=== PATIENT | male | born 1970 | race Caucasian/White ===

== ENCOUNTER 2020-07-28 07:12 | Inpatient (IN) | payer MEDICARE, MEDICAID ==
[~2020-07-28] VITALS: Ht 185.4 cm; Wt 124.7 kg
[~2020-07-28 07:12] MED LIST: APIX5TAB PO; ATOR-47 PO; BUME2TAB5 PO; CALC667C PO; CLOP75TA70 PO; INSU1INJ19 SC; METO10TA7 PO; METO200T42 PO; NIFE1TAB36 PO; POTA-180 PO; SEVE800T8 PO
[2020-07-28 08:13] LABS: Basophils # (auto) 0.1 10 ^3/uL (0-0.2); Basophils % (auto) 0.5 % (0.0-2.0); Eosinophils # (auto) 0 10 ^3/uL (0-0.8); Eosinophils % (auto) 0.1 % (0.0-7.0); Hematocrit 39.9 % (41.0-53.0); Hemoglobin 13.8 g/dL (13.5-17.5); Lymphocytes # (auto) 1.2 10 ^3/uL (0.4-5.4); Lymphocytes % (auto) 7.4 % (10.0-50.0); Mean Corpuscular Hemoglobin 28.1 pg (28.0-32.0); Mean Corpuscular Hgb Conc. 34.5 g/dL (32.0-36.0); Mean Corpuscular Volume 81.5 fL (80.0-100.0); Monocytes # (auto) 1.6 10 ^3/uL (0-1.3); Monocytes % (auto) 9.6 % (0.0-12.0); Neutrophils # (auto) 13.6 10 ^3/uL (1.6-8.6); Neutrophils % (auto) 82.4 % (37.0-80.0); Nucleated Red Blood Cells % 0.1 %; Platelet Count (auto) 257 10^3/uL (140-450); White Blood Cell 16.5 10^3/uL (4.4-10.8)
[2020-07-28 08:30] LABS: Albumin 3.2 g/dL (3.4-5.0); Anion Gap 19 (5-15); Calcium 6.9 mg/dL (8.5-10.1); Carbon Dioxide 20 mmol/L (21-32); Chloride 94 mmol/L (98-107); Glucose 122 mg/dL (74-106); Sodium 133 mmol/L (136-145)
[2020-07-28 08:36] LABS: Alanine Aminotransferase 18 U/L (16-61); Alkaline Phosphatase 60 U/L (45-117); Aspartate Aminotransferase 13 U/L (15-37); BUN/Creatinine Ratio 18.3; Bilirubin, Total 0.6 mg/dL (0.2-1.0); GFR African American 11 mL/min; GFR Non-African American 9 mL/min; Total Protein 8.1 g/dL (6.4-8.2)
[2020-07-28 08:41] LABS: Potassium 2.5 mmol/L (3.5-5.1)
[2020-07-28 08:42] LABS: Blood Urea Nitrogen 123 mg/dL (7-18)
[2020-07-28] MEDS ORDERED: POTASSIUM CHL 20 Meq TABLET PO ONE (10:15)
[2020-07-28] MEDS ORDERED: HYDROcodone-ACET 5/325MG TAB PO PRN (10:30)
[2020-07-28] MEDS ORDERED: ACETAMINOPHEN 500 MG TAB PO PRN (10:30)
[2020-07-28] MEDS ORDERED: NITROGLYCERIN 0.4 MG SL TAB SL PRN (10:30)
[2020-07-28] MEDS ORDERED: VANCOMYCIN PER PHARMACY 0 MG IV SCH (10:30)
[2020-07-28] MEDS ORDERED: ONDANSETRON HCL 4 MG/2 ML VIAL IV PRN (10:30)
[2020-07-28] MEDS ORDERED: DEXTROSE (50%) 50ML SYRG IV PRN (10:30)
[2020-07-28] MEDS ORDERED: MORPHINE SULF INJ 2 MG/ML SYRINGE 1ML IV PRN (10:30)
[2020-07-28] MEDS ORDERED: SEVELAMER 800 MG TAB PO SCH (11:00)
[2020-07-28] MEDS ORDERED: VANCOMYCIN 1GM/250ML 250 ML IV ONE (11:15)
[2020-07-28] MEDS: MORPHINE SULF INJ 2 MG/ML SYRINGE 1ML IV PRN ×2 (11:30→22:58)
[2020-07-28] MEDS: InsuLIN REG 1unit/0.01ml Soln (100units/ml) SC SCH ×2 (11:30→21:51)
[2020-07-28] MEDS: cefTRIAXone 1GM/50ML D5W 50 ML IV SCH (11:30)
[2020-07-28] MEDS: ACCU-CHEK COMFORT CURVE STRIP VI SCH ×2 (11:39→21:49)
[2020-07-28] MEDS ORDERED: SEVE800T8 PO (11:47)
[2020-07-28 13:15] LABS: Urine Bacteria FEW /hpf (None Seen); Urine Blood 1+ /uL (Negative); Urine Specific Gravity 1.011 (1.001-1.035); Urine WBC 12 /hpf (0 - 3)
[2020-07-28] MEDS: SEVELAMER 800 MG TAB PO SCH ×2 (14:36→18:00)
[2020-07-28] MEDS: metroNIDAZOLE 500MG/100ML 100 ML IV SCH ×2 (14:37→21:26)
[2020-07-28 17:32] VITALS: BP 116/96
[2020-07-28] MEDS ORDERED: VANCOMYCIN 500 MG in D5W 5% 100 ML IV ONE (18:00)
[2020-07-28] MEDS: ATORVASTATIN 20 MG TAB PO SCH (21:26)
[2020-07-28 21:58] VITALS: BP 148/88
[2020-07-29 05:00] VITALS: BP 128/67
[2020-07-29] MEDS: metroNIDAZOLE 500MG/100ML 100 ML IV SCH ×3 (05:42→21:15)
[2020-07-29] MEDS: ACCU-CHEK COMFORT CURVE STRIP VI SCH ×4 (06:19→21:33)
[2020-07-29] MEDS: MORPHINE SULF INJ 2 MG/ML SYRINGE 1ML IV PRN ×2 (06:19→20:03)
[2020-07-29] MEDS: InsuLIN REG 1unit/0.01ml Soln (100units/ml) SC SCH ×4 (06:20→21:34)
[2020-07-29] MEDS ORDERED: SODIUM CHL 0.9% 1000 ML BAG XX ONE (07:00)
[2020-07-29 07:28] LABS: Basophils # (auto) 0.1 10 ^3/uL (0-0.2); Basophils % (auto) 0.9 % (0.0-2.0); Eosinophils # (auto) 0 10 ^3/uL (0-0.8); Eosinophils % (auto) 0.3 % (0.0-7.0); Hematocrit 39.9 % (41.0-53.0); Hemoglobin 13.5 g/dL (13.5-17.5); Lymphocytes # (auto) 0.9 10 ^3/uL (0.4-5.4); Lymphocytes % (auto) 8.5 % (10.0-50.0); Mean Corpuscular Hemoglobin 27.5 pg (28.0-32.0); Mean Corpuscular Hgb Conc. 33.7 g/dL (32.0-36.0); Mean Corpuscular Volume 81.6 fL (80.0-100.0); Monocytes % (auto) 10.4 % (0.0-12.0); Neutrophils # (auto) 8.1 10 ^3/uL (1.6-8.6); Neutrophils % (auto) 79.9 % (37.0-80.0); Nucleated Red Blood Cells % 0.1 %; Platelet Count (auto) 236 10^3/uL (140-450); Red Blood Cells 4.89 10^6/uL (4.5-5.90); Red Cell Distribution Width 15.2 % (11.8-14.3); White Blood Cell 10.1 10^3/uL (4.4-10.8)
[2020-07-29 07:52] LABS: % Iron Saturation 12.3 % (20-55)
[2020-07-29 07:56] LABS: BUN/Creatinine Ratio 18.9; Calcium 7.4 mg/dL (8.5-10.1)
[2020-07-29 08:00] LABS: Potassium 2.3 mmol/L (3.5-5.1)
[2020-07-29] MEDS: SEVELAMER 800 MG TAB PO SCH ×3 (08:00→18:00)
[2020-07-29 08:30] VITALS: BP 116/68
[2020-07-29] MEDS ORDERED: FAMOTIDINE 20 MG TAB PO SCH (10:00)
[2020-07-29] MEDS: cefTRIAXone 1GM/50ML D5W 50 ML IV SCH (12:00)
[2020-07-29] MEDS: NIFEdipine ER 30 MG TAB PO SCH (12:00)
[2020-07-29] MEDS: METOPROLOL SUCCINATE XL 50 MG TAB PO SCH (12:00)
[2020-07-29] MEDS: CLOPIDOGREL BISULFATE 75 MG TAB PO SCH (12:00)
[2020-07-29 12:30] VITALS: BP 115/62
[2020-07-29] MEDS ORDERED: NAPROXEN 500 MG TAB PO ONE (15:00)
[2020-07-29 15:35] LABS: Alanine Aminotransferase 17 U/L (16-61); Anion Gap 15 (5-15); BUN/Creatinine Ratio 16.7; Carbon Dioxide 25 mmol/L (21-32); Chloride 94 mmol/L (98-107); GFR African American 16 mL/min; GFR Non-African American 13 mL/min; Glucose 162 mg/dL (74-106); Sodium 134 mmol/L (136-145)
[2020-07-29 15:38] LABS: Alkaline Phosphatase 60 U/L (45-117); Aspartate Aminotransferase 12 U/L (15-37); Bilirubin, Total 0.6 mg/dL (0.2-1.0); Total Protein 8.6 g/dL (6.4-8.2)
[2020-07-29 15:43] LABS: Potassium 2.6 mmol/L (3.5-5.1)
[2020-07-29 15:44] LABS: Blood Urea Nitrogen 85 mg/dL (7-18)
[2020-07-29] MEDS: POTASSIUM CHL 20MEQ/100ML 100 ML IV SCH ×2 (16:15→18:15)
[2020-07-29 16:50] VITALS: BP 121/70
[2020-07-29] MEDS ORDERED: VANCOMYCIN 1GM/250ML 250 ML IV ONE (18:00)
[2020-07-29] MEDS ORDERED: EPOETIN ALFA-EPBX 10,000 UNIT/1ML VIAL SC ONE (21:00)
[2020-07-29] MEDS: ATORVASTATIN 20 MG TAB PO SCH (21:15)
[2020-07-29 22:00] VITALS: BP 113/71
[2020-07-29] MEDS ORDERED: NAPROXEN 500 MG TAB PO SCH (22:00)
[2020-07-29] MEDS ORDERED: POTASSIUM CHL 20MEQ/100ML 100 ML IV ONE (22:45)
[2020-07-30 05:00] VITALS: BP 107/63
[2020-07-30] MEDS: metroNIDAZOLE 500MG/100ML 100 ML IV SCH (05:34)
[2020-07-30] MEDS: InsuLIN REG 1unit/0.01ml Soln (100units/ml) SC SCH ×4 (06:42→22:01)
[2020-07-30] MEDS: ACCU-CHEK COMFORT CURVE STRIP VI SCH ×4 (06:42→21:58)
[2020-07-30 06:48] LABS: Basophils # (auto) 0.1 10 ^3/uL (0-0.2); Basophils % (auto) 1.3 % (0.0-2.0); Eosinophils # (auto) 0 10 ^3/uL (0-0.8); Eosinophils % (auto) 0.4 % (0.0-7.0); Hematocrit 39.3 % (41.0-53.0); Hemoglobin 13.5 g/dL (13.5-17.5); Lymphocytes % (auto) 10.2 % (10.0-50.0); Mean Corpuscular Hemoglobin 27.7 pg (28.0-32.0); Mean Corpuscular Hgb Conc. 34.3 g/dL (32.0-36.0); Mean Corpuscular Volume 80.9 fL (80.0-100.0); Monocytes % (auto) 9.8 % (0.0-12.0); Neutrophils % (auto) 78.3 % (37.0-80.0); Platelet Count (auto) 255 10^3/uL (140-450); Red Blood Cells 4.85 10^6/uL (4.5-5.90); Red Cell Distribution Width 14.6 % (11.8-14.3); White Blood Cell 10.2 10^3/uL (4.4-10.8)
[2020-07-30] MEDS ORDERED: SODIUM CHL 0.9% 1000 ML BAG XX ONE (07:00)
[2020-07-30 07:12] LABS: Uric Acid 11.9 mg/dL (3.5-7.2)
[2020-07-30 07:18] LABS: Albumin 2.8 g/dL (3.4-5.0); BUN/Creatinine Ratio 18.6; Bilirubin, Total 0.5 mg/dL (0.2-1.0); Calcium 8.1 mg/dL (8.5-10.1); Phosphorus 7.4 mg/dL (2.5-4.90); Total Protein 7.3 g/dL (6.4-8.2)
[2020-07-30 07:25] LABS: Potassium 2.4 mmol/L (3.5-5.1)
[2020-07-30] MEDS: SEVELAMER 800 MG TAB PO SCH ×3 (08:00→17:48)
[2020-07-30 08:30] VITALS: BP 133/52
[2020-07-30] MEDS: cefTRIAXone 1GM/50ML D5W 50 ML IV SCH (09:00)
[2020-07-30] MEDS ORDERED: POTASSIUM EFFERVESENT TAB 25 MEQ PO ONE (09:30)
[2020-07-30] MEDS: METOPROLOL SUCCINATE XL 50 MG TAB PO SCH (10:00)
[2020-07-30] MEDS: CLOPIDOGREL BISULFATE 75 MG TAB PO SCH (10:00)
[2020-07-30] MEDS: ALLOPURINOL 100 MG TAB PO SCH (10:00)
[2020-07-30] MEDS: NIFEdipine ER 30 MG TAB PO SCH (10:00)
[2020-07-30 12:30] VITALS: BP 103/68
[2020-07-30 13:54] LABS: Hepatitis A Ab IgM Negative; Hepatitis B Core IgM Negative
[2020-07-30 13:55] LABS: Hepatitis B Surface Antigen Negative (Negative); Hepatitis C Antibody Negative (Negative)
[2020-07-30] MEDS: MORPHINE SULF INJ 2 MG/ML SYRINGE 1ML IV PRN (14:00)
[2020-07-30 17:00] VITALS: BP 115/75
[2020-07-30] MEDS: ATORVASTATIN 20 MG TAB PO SCH (21:40)
[2020-07-30 22:00] VITALS: BP 114/84
[2020-07-30] MEDS ORDERED: POTASSIUM CHL 20 Meq TABLET PO ONE (22:30)
[2020-07-30] MEDS ORDERED: TEMAZEPAM 15 MG CAP PO ONE (22:30)
[2020-07-31 05:00] VITALS: BP 90/44
[2020-07-31] MEDS: MORPHINE SULF INJ 2 MG/ML SYRINGE 1ML IV PRN ×2 (06:33→20:16)
[2020-07-31] MEDS: ACCU-CHEK COMFORT CURVE STRIP VI SCH ×4 (06:33→22:17)
[2020-07-31] MEDS: InsuLIN REG 1unit/0.01ml Soln (100units/ml) SC SCH ×3 (06:33→22:00)
[2020-07-31 06:58] LABS: INR 1.18 (0.9-1.15); Partial Thromboplastin Time 35.6 sec (23.0-31.2)
[2020-07-31 07:02] LABS: BUN/Creatinine Ratio 17.8; Calcium 8.4 mg/dL (8.5-10.1)
[2020-07-31 07:14] LABS: Potassium 2.7 mmol/L (3.5-5.1)
[2020-07-31] MEDS: SEVELAMER 800 MG TAB PO SCH ×3 (08:00→18:00)
[2020-07-31] MEDS ORDERED: POTASSIUM CHL 20MEQ/100ML 100 ML IV ONE ×2 (08:15→13:00)
[2020-07-31 09:00] VITALS: BP 119/62
[2020-07-31] MEDS: cefTRIAXone 1GM/50ML D5W 50 ML IV SCH (09:23)
[2020-07-31] MEDS: FAMOTIDINE 20 MG TAB PO SCH (09:23)
[2020-07-31] MEDS: CLOPIDOGREL BISULFATE 75 MG TAB PO SCH (09:23)
[2020-07-31] MEDS: METOPROLOL SUCCINATE XL 50 MG TAB PO SCH (09:56)
[2020-07-31] MEDS ORDERED: POTASSIUM EFFERVESENT TAB 25 MEQ PO ONE (11:30)
[2020-07-31] MEDS ORDERED: POTASSIUM CHL 20 Meq TABLET PO ONE (12:45)
[2020-07-31 13:00] VITALS: BP 128/81
[2020-07-31] MEDS ORDERED: MIDAZOLAM HCL 1MG/1ML-2 ML VIAL ONE (14:46)
[2020-07-31] MEDS ORDERED: fentaNYL CITRATE 100 MCG/2 ML VL ONE (14:46)
[2020-07-31] MEDS ORDERED: LIDOCAINE 2%HCL (LOCAL ANESTH.) INJ 20ML MDV ONE (14:49)
[2020-07-31] MEDS ORDERED: IOHEXOL 350 MG/ML 100ML IJ ONE (14:49)
[2020-07-31] MEDS ORDERED: HEPARIN SODIUM (PORCINE) 5000 UNITS/ML 1ML VIAL ONE (15:25)
[2020-07-31 17:48] LABS: Potassium 3.4 mmol/L (3.5-5.1)
[2020-07-31 17:50] LABS: Magnesium 2.2 mg/dL (1.6-2.6)
[2020-07-31 22:00] VITALS: BP 102/73
[2020-07-31] MEDS ORDERED: TEMAZEPAM 15 MG CAP PO ONE (22:15)
[2020-07-31] MEDS: SODIUM CHLOR 0.9% PF (SALINE LOCK) 10ML VIAL/SYR IV SCH (22:17)
[2020-07-31] MEDS: ATORVASTATIN 20 MG TAB PO SCH (22:17)
[2020-08-01 05:00] VITALS: BP 102/64
[2020-08-01] MEDS: SODIUM CHLOR 0.9% PF (SALINE LOCK) 10ML VIAL/SYR IV SCH ×3 (05:30→22:13)
[2020-08-01] MEDS: ACCU-CHEK COMFORT CURVE STRIP VI SCH ×4 (06:16→22:13)
[2020-08-01] MEDS: InsuLIN REG 1unit/0.01ml Soln (100units/ml) SC SCH ×4 (06:16→22:13)
[2020-08-01 08:30] VITALS: BP 137/64
[2020-08-01 08:30] LABS: Potassium 3.1 mmol/L (3.5-5.1)
[2020-08-01 08:35] LABS: BUN/Creatinine Ratio 20.7; Calcium 8.4 mg/dL (8.5-10.1); Magnesium 2.5 mg/dL (1.6-2.6)
[2020-08-01] MEDS: cefTRIAXone 1GM/50ML D5W 50 ML IV SCH (09:12)
[2020-08-01] MEDS: CLOPIDOGREL BISULFATE 75 MG TAB PO SCH (09:13)
[2020-08-01] MEDS: SEVELAMER 800 MG TAB PO SCH ×3 (09:13→17:36)
[2020-08-01] MEDS: METOPROLOL SUCCINATE XL 50 MG TAB PO SCH ×3 (09:13→10:00)
[2020-08-01] MEDS ORDERED: POTASSIUM CHL 20 Meq TABLET PO ONE (09:30)
[2020-08-01] MEDS ORDERED: SODIUM CHL 0.9% 1000 ML BAG XX ONE (09:30)
[2020-08-01 12:30] VITALS: BP 144/78
[2020-08-01 16:50] VITALS: BP 116/68
[2020-08-01 22:00] VITALS: BP 151/80
[2020-08-01] MEDS: MORPHINE SULF INJ 2 MG/ML SYRINGE 1ML IV PRN (22:13)
[2020-08-01] MEDS: ATORVASTATIN 20 MG TAB PO SCH (22:13)
[2020-08-02 05:00] VITALS: BP 126/66
[2020-08-02] MEDS: SODIUM CHLOR 0.9% PF (SALINE LOCK) 10ML VIAL/SYR IV SCH ×3 (06:00→20:47)
[2020-08-02] MEDS: ACCU-CHEK COMFORT CURVE STRIP VI SCH ×4 (06:53→20:40)
[2020-08-02] MEDS: InsuLIN REG 1unit/0.01ml Soln (100units/ml) SC SCH ×4 (07:00→20:42)
[2020-08-02 07:04] LABS: Calcium 8.8 mg/dL (8.5-10.1)
[2020-08-02 07:07] LABS: Potassium 2.9 mmol/L (3.5-5.1)
[2020-08-02] MEDS: FAMOTIDINE 20 MG TAB PO SCH (08:06)
[2020-08-02] MEDS: CLOPIDOGREL BISULFATE 75 MG TAB PO SCH (08:06)
[2020-08-02] MEDS: SEVELAMER 800 MG TAB PO SCH ×3 (08:06→17:57)
[2020-08-02] MEDS: METOPROLOL SUCCINATE XL 50 MG TAB PO SCH (08:07)
[2020-08-02] MEDS: cefTRIAXone 1GM/50ML D5W 50 ML IV SCH (08:07)
[2020-08-02] MEDS ORDERED: POTASSIUM CHLORIDE 60 MEQ, LIDOCAINE 1% (LOCAL ANESTH.) 6 ML in SODIUM CHL 0.9% 500 ML IV ONE (08:15)
[2020-08-02 09:00] VITALS: BP 128/59
[2020-08-02] MEDS: ALLOPURINOL 100 MG TAB PO SCH (09:18)
[2020-08-02] MEDS: SPIRONOLACTONE 25 MG TAB PO SCH ×2 (09:36→17:57)
[2020-08-02] MEDS ORDERED: SPIRONOLACTONE 25 MG TAB PO SCH (10:00)
[2020-08-02 12:47] VITALS: BP 109/54
[2020-08-02] MEDS: MORPHINE SULF INJ 2 MG/ML SYRINGE 1ML IV PRN (16:23)
[2020-08-02 17:00] VITALS: BP 140/73
[2020-08-02] MEDS: ATORVASTATIN 20 MG TAB PO SCH (20:47)
[2020-08-02 22:00] VITALS: BP 116/71
[2020-08-03 05:00] VITALS: BP 115/81
[2020-08-03] MEDS: ACCU-CHEK COMFORT CURVE STRIP VI SCH ×2 (05:34→11:56)
[2020-08-03] MEDS: InsuLIN REG 1unit/0.01ml Soln (100units/ml) SC SCH ×2 (05:35→11:30)
[2020-08-03] MEDS: SPIRONOLACTONE 25 MG TAB PO SCH (05:35)
[2020-08-03] MEDS: SODIUM CHLOR 0.9% PF (SALINE LOCK) 10ML VIAL/SYR IV SCH ×2 (05:35→14:52)
[2020-08-03 07:17] LABS: Potassium 3.1 mmol/L (3.5-5.1)
[2020-08-03 07:26] LABS: BUN/Creatinine Ratio 17.3; Calcium 8.7 mg/dL (8.5-10.1)
[2020-08-03] MEDS: SEVELAMER 800 MG TAB PO SCH ×2 (08:14→12:31)
[2020-08-03] MEDS: cefTRIAXone 1GM/50ML D5W 50 ML IV SCH (08:14)
[2020-08-03 09:00] VITALS: BP 104/73
[2020-08-03] MEDS: CLOPIDOGREL BISULFATE 75 MG TAB PO SCH (09:50)
[2020-08-03] MEDS: METOPROLOL SUCCINATE XL 50 MG TAB PO SCH (09:53)
[2020-08-03] MEDS ORDERED: POTASSIUM CHL 20 Meq TABLET PO ONE (10:45)
[2020-08-03] MEDS ORDERED: METO-6 PO (11:46)
[2020-08-03] MEDS ORDERED: ALL100T PO (11:46)
[2020-08-03] MEDS ORDERED: CEPH-322 PO (12:04)
[2020-08-03 14:19] VITALS: BP 104/73
[2020-08-04] MEDS ORDERED: SODIUM CHL 0.9% 1000 ML BAG XX ONE (07:00)
== END 2020-08-03 16:00 | disposition home or self-care (01) | DRG 981 ==
LOC: ER 07:12 → TELE-EAST 10:38
PROVIDERS: ADMIT Nurse Practitioner Acute Care; ATTEND Internal Medicine
PROC: 5A1D70Z Performance of Urinary Filtration, Intermittent, Less than 6 Hours Per Day (ICD-10-PCS; 2020-07-29)
PROC: 5A1D70Z Performance of Urinary Filtration, Intermittent, Less than 6 Hours Per Day (ICD-10-PCS; 2020-07-30)
PROC: B51W1ZZ Fluoroscopy of Dialysis Shunt/Fistula using Low Osmolar Contrast (ICD-10-PCS; principal; 2020-07-31)
PROC: 037C3ZZ Dilation of Left Radial Artery, Percutaneous Approach (ICD-10-PCS; 2020-07-31)
PROC: 5A1D70Z Performance of Urinary Filtration, Intermittent, Less than 6 Hours Per Day (ICD-10-PCS; 2020-08-01)
DX: T82.41XA Breakdown (mechanical) of vascular dialysis catheter, initial encounter (principal); A41.9 Sepsis, unspecified organism; N18.6 End stage renal disease; L03.116 Cellulitis of left lower limb; I12.0 Hypertensive chronic kidney disease with stage 5 chronic kidney disease or end stage renal disease; T82.510A Breakdown (mechanical) of surgically created arteriovenous fistula, initial encounter; Z20.822 Contact with and (suspected) exposure to COVID-19; I73.9 Peripheral vascular disease, unspecified; D63.8 Anemia in other chronic diseases classified elsewhere; E87.6 Hypokalemia; I25.10 Atherosclerotic heart disease of native coronary artery without angina pectoris; E66.9 Obesity, unspecified; E11.22 Type 2 diabetes mellitus with diabetic chronic kidney disease; E11.40 Type 2 diabetes mellitus with diabetic neuropathy, unspecified; E11.51 Type 2 diabetes mellitus with diabetic peripheral angiopathy without gangrene; E78.5 Hyperlipidemia, unspecified; M10.9 Gout, unspecified; M19.079 Primary osteoarthritis, unspecified ankle and foot; Y71.2 Prosthetic and other implants, materials and accessory cardiovascular devices associated with adverse incidents; Z79.01 Long term (current) use of anticoagulants; Z99.2 Dependence on renal dialysis; Z79.02 Long term (current) use of antithrombotics/antiplatelets; Z79.4 Long term (current) use of insulin; Z79.899 Other long term (current) drug therapy; Z80.0 Family history of malignant neoplasm of digestive organs; Z80.3 Family history of malignant neoplasm of breast; Z82.49 Family history of ischemic heart disease and other diseases of the circulatory system; Z86.73 Personal history of transient ischemic attack (TIA), and cerebral infarction without residual deficits; Z95.5 Presence of coronary angioplasty implant and graft; Z79.891 Long term (current) use of opiate analgesic
CPT/HCPCS: 36415; 71045; 73700; 76000; 76942; 80048; 80053; 80061; 80074; 80202; 81001; 82728; 82962; 83036; 83540; 83550; 83735; 83880; 84100; 84132; 84443; 84484; 84550; 85025; 85049; 85610; 85730; 87040; 87081; 87426; 90935; 93005; 93926; 93971; 96365; 96366; 96368; 97110; 97116; 97530; 99152; 99153; G0378; J0696; J1642; J1815; J2001; J2250; J3480; J3490; J7060

== ENCOUNTER 2023-02-07 13:58 | Emergency (ER) | payer MEDICARE, MEDICAID ==
[~2023-02-07] VITALS: Ht 182.9 cm; Wt 123.0 kg
[~2023-02-07 13:58] MED LIST changes: +ALL100T PO; -BUME2TAB5 PO; +CEPH250C PO; +METO-6 PO; -METO10TA7 PO; -METO200T42 PO; -POTA-180 PO
[2023-02-07 16:31] LABS: Basophils # (auto) 0.1 10 ^3/uL (0-0.2); Basophils % (auto) 0.6 % (0.0-2.0); Eosinophils # (auto) 0.2 10 ^3/uL (0-0.8); Eosinophils % (auto) 1.6 % (0.0-7.0); Hematocrit 38.7 % (41.0-53.0); Hemoglobin 12.8 g/dL (13.5-17.5); Lymphocytes # (auto) 0.8 10 ^3/uL (0.4-5.4); Lymphocytes % (auto) 7.6 % (10.0-50.0); Mean Corpuscular Hemoglobin 30.8 pg (28.0-32.0); Mean Corpuscular Hgb Conc. 33.1 g/dL (32.0-36.0); Monocytes # (auto) 1.2 10 ^3/uL (0-1.3); Monocytes % (auto) 12.2 % (0.0-12.0); Neutrophils # (auto) 7.9 10 ^3/uL (1.6-8.6); Red Blood Cells 4.17 10^6/uL (4.5-5.90); Red Cell Distribution Width 14.1 % (11.8-14.3); White Blood Cell 10.2 10^3/uL (4.4-10.8)
[2023-02-07 16:54] LABS: Alanine Aminotransferase 16 U/L (7-40); Albumin 4.4 g/dL (3.2-4.8); Alkaline Phosphatase 96 U/L (46-116); Anion Gap 10 (5-15); Aspartate Aminotransferase 20 U/L (13-40); BUN/Creatinine Ratio 5.2 (10.0-20.0); Bilirubin, Total 0.6 mg/dL (0.2-1.0); Blood Urea Nitrogen 25 mg/dL (9-23); Calcium 9.7 mg/dL (8.5-10.1); Carbon Dioxide 36 mmol/L (20-30); Chloride 91 mmol/L (98-107); Glucose 124 mg/dL (74-106); Potassium 3.3 mmol/L (3.5-5.1); Sodium 137 mmol/L (136-145); Total Protein 7.4 g/dL (5.7-8.2)
[2023-02-07 20:48] LABS: Urine Bacteria NONE SEEN /hpf (None Seen); Urine Blood 1+ /uL (Negative); Urine Clarity Clear (Clear); Urine Color Yellow (Yellow); Urine Protein, UAD 3+ (Negative); Urine Specific Gravity 1.011 (1.001-1.035); Urine Sperm PRESENT /hpf (None Seen); Urine Urobilinogen Normal (Negative); Urine WBC 2 /hpf (0 - 3); Urine pH 8.5 (5.0-8.0)
[2023-02-07] MEDS ORDERED: CLIN150C PO (21:23)
[2023-02-07 21:57] VITALS: BP 142/90; PULSE 90; RESP 18; TEMP 98.2; O2SAT 98
== END 2023-02-07 21:58 | disposition home or self-care (01) ==
LOC: ER 13:58
DX: I12.9 Hypertensive chronic kidney disease with stage 1 through stage 4 chronic kidney disease, or unspecified chronic kidney disease (principal); E11.22 Type 2 diabetes mellitus with diabetic chronic kidney disease; N18.9 Chronic kidney disease, unspecified; N48.29 Other inflammatory disorders of penis; E78.5 Hyperlipidemia, unspecified; I25.2 Old myocardial infarction; Z99.2 Dependence on renal dialysis; Z86.73 Personal history of transient ischemic attack (TIA), and cerebral infarction without residual deficits; Z95.1 Presence of aortocoronary bypass graft; Z79.4 Long term (current) use of insulin; Z79.01 Long term (current) use of anticoagulants; Z79.899 Other long term (current) drug therapy
CPT/HCPCS: 36415; 80053; 81001; 83605; 85025; 87040; 87086; 87088; 87186